=== PATIENT | male | born 1945 | race Caucasian/White ===

== ENCOUNTER 2020-08-09 19:13 | Observation (INO) ==
[2020-08-09 19:33] LABS: Basophils # 0.1 K/mcL (0.0-0.2); Basophils % 0.8 %; Eosinophils # 0.4 K/mcL (0.0-0.6); Eosinophils % 4.6 %; Hemoglobin 10.8 g/dL (12.9-16.9); Immature Granulocytes % 0.4 % (0-4); Mean Corpuscular HGB Conc 31.8 g/dL (31.6-35.5); Mean Corpuscular Volume 100.9 fL (83.0-100.0); Mean Platelet Volume 9.2 fL (9.4-12.4); Monocytes # 0.6 K/mcL (0.0-1.3); Monocytes % 8.3 %; Neutrophils # 4.4 K/mcL (1.6-8.9); Platelet Count 193 K/mcL (140-400); Red Blood Count 3.37 M/mcL (4.19-5.50); Red Cell Distribution Width 13.9 % (11.5-14.5); Segmented Neutrophils % 58.9 %; White Blood Count 7.6 K/mcL (4.3-11.1)
[2020-08-09 19:56] LABS: BUN/Creatinine Ratio 11 (6-26); Blood Urea Nitrogen 17 mg/dL (8-23); Calcium 9.1 mg/dL (8.6-10.3); Carbon Dioxide 26 mEq/L (23-29); Chloride 109 mEq/L (98-107); Glucose 89 mg/dL (70-105); Osmolality,Calculated 295 (280-300); Potassium 4.2 mEq/L (3.5-5.1); Sodium 142 mEq/L (136-145); Troponin I < 0.03 ng/mL (< 0.04); eGFR For African Americans 53 (> 60); eGFR For Non-African Americans 44 (> 60)
[2020-08-09] MEDS ORDERED: Ondansetron 4 MG/2 ML VIAL IVP PRN (21:22)
[2020-08-09] MEDS ORDERED: Naloxone 0.4 MG/ML INJ IVP PRN (21:22)
[2020-08-09] MEDS ORDERED: Acetaminophen 325 MG TABLET PO PRN (21:22)
[2020-08-09] MEDS ORDERED: Perflutren Lipid Microsphere 1.3 ML in 0.9 % Sodium Chloride 8.7 ML IVP PRN (21:48)
[2020-08-10] MEDS: Melatonin 3 MG TABLET PO PRN ×2 (00:37→21:27)
[2020-08-10 01:32] LABS: Basophils # 0.1 K/mcL (0.0-0.2); Basophils % 0.8 %; Eosinophils # 0.4 K/mcL (0.0-0.6); Eosinophils % 5.9 %; Hematocrit 32.6 % (37.5-50.1); Hemoglobin 10.8 g/dL (12.9-16.9); Immature Granulocytes % 0.5 % (0-4); Lymphocytes # 1.6 K/mcL (0.6-4.6); Mean Corpuscular HGB Conc 33.1 g/dL (31.6-35.5); Mean Corpuscular Hemoglobin 34.8 pg (28.0-33.3); Mean Corpuscular Volume 105.2 fL (83.0-100.0); Mean Platelet Volume 9.3 fL (9.4-12.4); Monocytes # 0.6 K/mcL (0.0-1.3); Monocytes % 9.4 %; Neutrophils # 3.5 K/mcL (1.6-8.9); Platelet Count 175 K/mcL (140-400); Red Cell Distribution Width 14.6 % (11.5-14.5); Segmented Neutrophils % 57.4 %; White Blood Count 6.1 K/mcL (4.3-11.1)
[2020-08-10 01:51] LABS: BUN/Creatinine Ratio 12 (6-26); Blood Urea Nitrogen 16 mg/dL (8-23); Calcium 8.9 mg/dL (8.6-10.3); Carbon Dioxide 26 mEq/L (23-29); Chloride 108 mEq/L (98-107); Glucose 84 mg/dL (70-105); Osmolality,Calculated 292 (280-300); Potassium 4.1 mEq/L (3.5-5.1); Sodium 141 mEq/L (136-145); eGFR For African Americans > 60 (> 60); eGFR For Non-African Americans 51 (> 60)
[2020-08-10] MEDS: Isosorbide MONOnitrate (24 HR) 30 MG TAB.ER.24H PO SCH (08:29)
[2020-08-10] MEDS: *HR* Amiodarone 200 MG TABLET PO SCH (08:29)
[2020-08-10] MEDS: lisinopriL 5 MG TABLET PO SCH (08:29)
[2020-08-10] MEDS: *HR* Rivaroxaban 10 MG TABLET PO SCH (08:29)
[2020-08-10] MEDS ORDERED: DilTIAZem CD (24hr) 180 MG CAP.ER.24H PO SCH (09:00)
[2020-08-10] MEDS: 0.9 % Sodium Chloride 1,000 ML IVC SCH (13:10)
[2020-08-10 16:38] LABS: Bilirubin,Urine Negative (Negative); Blood,Urine Negative (Negative); Clarity,Urine Clear (Clear); Color,Urine Light-Yellow (Yellow); Glucose,Urine (UA) Normal (Normal); Ketones,Urine Negative (Negative); Leukocyte Esterase,Urine Negative (Negative); Nitrite,Urine Negative (Negative); Protein,Urine Negative (Neg-Trace); Specific Gravity,Urine 1.014 (1.010-1.025); Urobilinogen,Urine Normal (Normal)
[2020-08-11] MEDS: 0.9 % Sodium Chloride 1,000 ML IVC SCH (02:11)
[2020-08-11 03:25] LABS: Basophils # 0.1 K/mcL (0.0-0.2); Eosinophils # 0.4 K/mcL (0.0-0.6); Eosinophils % 6.7 %; Hemoglobin 10.6 g/dL (12.9-16.9); Immature Granulocytes % 0.6 % (0-4); Lymphocytes % 18.8 %; Mean Corpuscular HGB Conc 32.1 g/dL (31.6-35.5); Mean Corpuscular Hemoglobin 32.6 pg (28.0-33.3); Mean Corpuscular Volume 101.5 fL (83.0-100.0); Mean Platelet Volume 9.6 fL (9.4-12.4); Monocytes # 0.5 K/mcL (0.0-1.3); Monocytes % 9.6 %; Neutrophils # 3.3 K/mcL (1.6-8.9); Platelet Count 163 K/mcL (140-400); Red Blood Count 3.25 M/mcL (4.19-5.50); Red Cell Distribution Width 13.7 % (11.5-14.5); Segmented Neutrophils % 63.3 %; White Blood Count 5.2 K/mcL (4.3-11.1)
[2020-08-11 03:39] LABS: BUN/Creatinine Ratio 14 (6-26); Blood Urea Nitrogen 17 mg/dL (8-23); Calcium 8.7 mg/dL (8.6-10.3); Carbon Dioxide 25 mEq/L (23-29); Chloride 111 mEq/L (98-107); Glucose 86 mg/dL (70-105); Osmolality,Calculated 295 (280-300); Potassium 4.2 mEq/L (3.5-5.1); Sodium 142 mEq/L (136-145); eGFR For African Americans > 60 (> 60); eGFR For Non-African Americans 59 (> 60)
[2020-08-11] MEDS ORDERED: DOXYCYCLINE HYCLATE 50 MG PO SCH (09:00)
[2020-08-11] MEDS: Isosorbide MONOnitrate (24 HR) 30 MG TAB.ER.24H PO SCH (09:44)
[2020-08-11] MEDS: *HR* Rivaroxaban 10 MG TABLET PO SCH (09:44)
[2020-08-11] MEDS: lisinopriL 5 MG TABLET PO SCH (09:45)
[2020-08-11] MEDS: Melatonin 3 MG TABLET PO PRN (20:00)
[2020-08-12 02:15] LABS: Basophils % 0.5 %; Eosinophils # 0.4 K/mcL (0.0-0.6); Eosinophils % 6.3 %; Hematocrit 31.7 % (37.5-50.1); Hemoglobin 10.1 g/dL (12.9-16.9); Immature Granulocytes % 0.3 % (0-4); Lymphocytes # 1.1 K/mcL (0.6-4.6); Mean Corpuscular HGB Conc 31.9 g/dL (31.6-35.5); Mean Corpuscular Volume 100.3 fL (83.0-100.0); Mean Platelet Volume 9.5 fL (9.4-12.4); Monocytes # 0.6 K/mcL (0.0-1.3); Monocytes % 9.9 %; Neutrophils # 3.8 K/mcL (1.6-8.9); Platelet Count 157 K/mcL (140-400); Red Blood Count 3.16 M/mcL (4.19-5.50); Red Cell Distribution Width 13.6 % (11.5-14.5); White Blood Count 5.9 K/mcL (4.3-11.1)
[2020-08-12 02:32] LABS: BUN/Creatinine Ratio 11 (6-26); Blood Urea Nitrogen 12 mg/dL (8-23); Carbon Dioxide 26 mEq/L (23-29); Chloride 110 mEq/L (98-107); Glucose 85 mg/dL (70-105); Osmolality,Calculated 295 (280-300); Potassium 4.4 mEq/L (3.5-5.1); Sodium 143 mEq/L (136-145); eGFR For African Americans > 60 (> 60); eGFR For Non-African Americans > 60 (> 60)
[2020-08-12] MEDS: *HR* Rivaroxaban 10 MG TABLET PO SCH (08:04)
[2020-08-12] MEDS: Isosorbide MONOnitrate (24 HR) 30 MG TAB.ER.24H PO SCH (08:04)
[2020-08-12] MEDS: lisinopriL 5 MG TABLET PO SCH (08:04)
[2020-08-12 10:38] VITALS: BP 126/67
[2020-08-12] MEDS: *HR* Amiodarone 200 MG TABLET PO SCH (11:05)
== END 2020-08-12 11:23 | disposition home or self-care (01) ==
LOC: EMEROOARM 19:13 → 3BNU 19:13 → SUATTDRO 21:28 → 2NENU 21:30
PROVIDERS: ADMIT Internal Medicine; ATTEND Pharmacist

== ENCOUNTER 2020-10-06 17:37 | Inpatient (IN) ==
[2020-10-06 19:31] LABS: Basophils # 0.1 K/mcL (0.0-0.2); Eosinophils # 0.3 K/mcL (0.0-0.6); Eosinophils % 5.4 %; Hematocrit 34.3 % (37.5-50.1); Hemoglobin 11.3 g/dL (12.9-16.9); Immature Granulocytes % 0.3 % (0-4); Lymphocytes # 1.5 K/mcL (0.6-4.6); Lymphocytes % 24.7 %; Mean Corpuscular HGB Conc 32.9 g/dL (31.6-35.5); Mean Corpuscular Hemoglobin 32.9 pg (28.0-33.3); Monocytes # 0.6 K/mcL (0.0-1.3); Monocytes % 9.7 %; Neutrophils # 3.5 K/mcL (1.6-8.9); Platelet Count 225 K/mcL (140-400); Red Blood Count 3.43 M/mcL (4.19-5.50); Red Cell Distribution Width 13.5 % (11.5-14.5); Segmented Neutrophils % 58.9 %; White Blood Count 5.9 K/mcL (4.3-11.1)
[2020-10-06 19:54] LABS: Calcium 9.2 mg/dL (8.6-10.3)
[2020-10-06 20:07] LABS: Thyroid Stimulating Hormone 2.607 mcIU/mL (0.340-5.600)
[2020-10-06] MEDS ORDERED: Naloxone 0.4 MG/ML INJ IVP PRN (20:36)
[2020-10-06] MEDS ORDERED: Ondansetron 4 MG/2 ML VIAL IVP PRN (20:36)
[2020-10-06] MEDS ORDERED: Melatonin 3 MG TABLET PO PRN (20:36)
[2020-10-06] MEDS ORDERED: 0.9 % Sodium Chloride 1,000 ML IVC SCH (20:45)
[2020-10-07 06:42] LABS: Hematocrit 33.3 % (37.5-50.1); Hemoglobin 10.6 g/dL (12.9-16.9); Mean Corpuscular HGB Conc 31.8 g/dL (31.6-35.5); Mean Corpuscular Hemoglobin 31.5 pg (28.0-33.3); Mean Corpuscular Volume 99.1 fL (83.0-100.0); Mean Platelet Volume 9.8 fL (9.4-12.4); Platelet Count 202 K/mcL (140-400); Red Blood Count 3.36 M/mcL (4.19-5.50); Red Cell Distribution Width 13.4 % (11.5-14.5); White Blood Count 5.7 K/mcL (4.3-11.1)
[2020-10-07 07:05] LABS: BUN/Creatinine Ratio 12 (6-26); Blood Urea Nitrogen 15 mg/dL (8-23); Calcium 8.9 mg/dL (8.6-10.3); Carbon Dioxide 27 mEq/L (23-29); Chloride 110 mEq/L (98-107); Glucose 97 mg/dL (70-105); Osmolality,Calculated 293 (280-300); Potassium 4.3 mEq/L (3.5-5.1); Sodium 141 mEq/L (136-145); eGFR For African Americans > 60 (> 60); eGFR For Non-African Americans 57 (> 60)
[2020-10-07] MEDS ORDERED: Artificial Tears SOLN 15 ML BOTTLE BOTH EYES PRN (12:02)
[2020-10-07] MEDS: Isosorbide MONOnitrate (24 HR) 30 MG TAB.ER.24H PO SCH (14:08)
[2020-10-08 07:41] LABS: Hemoglobin 11.2 g/dL (12.9-16.9)
[2020-10-08 07:58] LABS: BUN/Creatinine Ratio 13 (6-26); Blood Urea Nitrogen 17 mg/dL (8-23); Calcium 9.2 mg/dL (8.6-10.3); Carbon Dioxide 26 mEq/L (23-29); Chloride 109 mEq/L (98-107); Glucose 96 mg/dL (70-105); Osmolality,Calculated 291 (280-300); Potassium 4.8 mEq/L (3.5-5.1); Sodium 140 mEq/L (136-145); eGFR For African Americans > 60 (> 60); eGFR For Non-African Americans 55 (> 60)
[2020-10-08 08:15] LABS: Hematocrit 35.4 % (37.5-50.1); Mean Corpuscular HGB Conc 31.6 g/dL (31.6-35.5); Mean Platelet Volume 10.2 fL (9.4-12.4); Platelet Count 208 K/mcL (140-400); Red Cell Distribution Width 13.5 % (11.5-14.5); White Blood Count 6.2 K/mcL (4.3-11.1)
[2020-10-08 08:21] LABS: Mean Corpuscular Volume 101.1 fL (83.0-100.0)
[2020-10-08 09:00] LABS: INR 1.2; Prothrombin Time 13.3 Seconds (9.4-12.1)
[2020-10-08] MEDS: Isosorbide MONOnitrate (24 HR) 30 MG TAB.ER.24H PO SCH (09:37)
[2020-10-08] MEDS ORDERED: *HR* FentaNYL (PF) 100 MCG/2 ML VIAL ONE (09:41)
[2020-10-08] MEDS ORDERED: *HR* Midazolam HCl 2 MG/2 ML VIAL ONE ×2 (09:41→10:29)
[2020-10-08] MEDS ORDERED: 0.9 % Sodium Chloride 500 ML ONE (09:42)
[2020-10-08] MEDS ORDERED: 0.9 % Sodium Chloride 1,000 ML ONE (09:42)
[2020-10-08] MEDS: Acetaminophen 325 MG TABLET PO PRN (15:37)
[2020-10-09 02:15] LABS: BUN/Creatinine Ratio 14 (6-26); Blood Urea Nitrogen 17 mg/dL (8-23); Carbon Dioxide 25 mEq/L (23-29); Chloride 105 mEq/L (98-107); Glucose 117 mg/dL (70-105); Osmolality,Calculated 297 (280-300); Potassium 4.1 mEq/L (3.5-5.1); Sodium 142 mEq/L (136-145); eGFR For African Americans > 60 (> 60); eGFR For Non-African Americans 57 (> 60)
[2020-10-09 02:54] LABS: Hematocrit 34.5 % (37.5-50.1); Mean Corpuscular HGB Conc 31.9 g/dL (31.6-35.5); Mean Corpuscular Volume 100.3 fL (83.0-100.0); Mean Platelet Volume 9.9 fL (9.4-12.4); Platelet Count 195 K/mcL (140-400); Red Blood Count 3.44 M/mcL (4.19-5.50); Red Cell Distribution Width 13.3 % (11.5-14.5); White Blood Count 6.2 K/mcL (4.3-11.1)
[2020-10-09] MEDS: Acetaminophen 325 MG TABLET PO PRN (03:35)
[2020-10-09] MEDS: Isosorbide MONOnitrate (24 HR) 30 MG TAB.ER.24H PO SCH (07:38)
[2020-10-09 11:39] VITALS: BP 113/63
== END 2020-10-09 13:52 | disposition home or self-care (01) | DRG 243 ==
LOC: 3BNU 17:37 → EMEROOARM 17:37 → SUATTDRO 20:55 → 3BNU 21:45
PROVIDERS: ADMIT Internal Medicine; ATTEND Nurse Practitioner